=== PATIENT | female | born 1995 | race Caucasian/White ===

== ENCOUNTER 2019-05-08 07:59 | Emergency (ER) | payer SELFPAY ==
[~2019-05-08 07:59] MED LIST: Sodium Chloride 0.9% 1,000 ML BAG ONE; Sodium Chloride 0.9% 100 ML BAG ONE
[2019-05-08] MEDS ORDERED: Ondansetron PF 4 MG/2 ML Vial ONE ×2 (08:14→08:45)
[2019-05-08] MEDS ORDERED: Sodium Chloride 0.9% 1,000 ML ONE ×2 (08:15→12:53)
[2019-05-08] MEDS ORDERED: Morphine 4 MG/ML VIAL ONE ×2 (08:45→12:43)
[2019-05-08] MEDS ORDERED: Pantoprazole 40 MG VIAL ONE (08:45)
[2019-05-08] MEDS ORDERED: Lidocaine Viscous Sol 2% 15 ml UD Cup ONE ×2 (08:45→10:42)
[2019-05-08] MEDS ORDERED: Mag-Al Plus 1200 MG/1200 MG/120 MG/30 ML UDCUP ONE ×2 (08:45→10:42)
[2019-05-08 08:58] LABS: BHCG - Serum Negative (NEGATIVE); Pregs Control Bar Appear? YES (CONTROL BAR)
[2019-05-08 08:59] LABS: Pregs Control Background? CLEAR/WHITE (CLR/WHITE)
[2019-05-08 09:04] LABS: ALT (SGPT) 10 U/L (8-55); AST (SGOT) 12 U/L (5-34); Albumin 4.1 g/dL (3.5-5.0); Alkaline Phosphatase 67 U/L (40-110); Anion Gap 16 mmol/L (10-20); BUN (Urea Nitrogen) 7 mg/dL (7.0-18.7); Bilirubin, Total 1.6 mg/dL (0.2-1.2); Calc. Creatinine Clearance 0 mL/min (70-130); Calcium 9.3 mg/dL (7.8-10.44); Carbon Dioxide 17 mmol/L (22-29); Chloride 109 mmol/L (98-107); Estimated GFR-MDRD 83; Globulin 2.7 g/dL (2.4-3.5); Potassium 3.3 mmol/L (3.5-5.1); Protein, Total 6.8 g/dL (6.0-8.3); Sodium 139 mmol/L (136-145)
[2019-05-08 09:05] LABS: Glucose 166 mg/dL (70-105)
[2019-05-08 09:06] LABS: Mean Corpuscular HGB CONC 34.6 g/dL (32.0-36.0); Mean Corpuscular Volume 92.5 fL (78.0-98.0); Mean Platelet Volume 8.3 fL (7.4-10.4); Platelet Count 123 thou/uL (130-400); RBC Distribution Width 10.3 % (11.5-14.5); Red Blood Cell (RBC) Count 4.06 mill/uL (4.20-5.40); White Blood Cell (WBC) Count 14.5 thou/uL (4.8-10.8)
[2019-05-08 09:12] LABS: Lipase Less than 4 U/L (8-78)
[2019-05-08 09:15] LABS: Anisocytosis SLIGHT = 6-15 cells (100X) (0-5/hpf); Band 10 % (5-11); Lymphocytes 10 % (21-51); MDiff Complete? YES; Monocytes 6 % (0-10); Neutrophil 74 % (42-75); Platelet Morphology Comment Appears Adequate
[2019-05-08] MEDS ORDERED: cefTRIAXone\\ROCEPHIN 1 GM VIAL ONE (09:32)
--- NOTE | 2019-05-08 09:51 | CT ---
CT ABDOMEN AND PELVIS WITHOUT CONTRAST: INDICATIONS: Left flank pain. Nausea and vomiting. FINDINGS: The lung bases are clear. The liver, spleen and pancreas are unremarkable. Review of the urinary tract reveals no significant hydronephrosis. There is mild fullness of the left ureter. There is evidence of a tiny, 3 mm calculus in the distal left ureter. This is producing low grade obstruction. There is a 2 mm nonobstructing calculus in the lower pole collecting structures of the left kidney. T here is a 2 to 3 mm nonobstructing calculus in the upper pole collecting structures of the right kidn ey and a 2 mm calculus in the lower pole collecting structures of the right kidney. Bowel loops are unremarkable. Appendix is not identified. There is an IUD in the endometrial cavity. IMPRESSION: 1. There is evidence of a 3 mm calculus in the distal left ureter producing low grade obstruction. 2. There are tiny, nonobstructing calculi in the upper collecting structures of both kidneys, as desc ribed. POS: [facility]
[2019-05-08] MEDS ORDERED: Metoclopramide HCl 10 MG/2 ML VIAL ONE (09:53)
[2019-05-08 09:54] LABS: Bilirubin Negative (Negative); Blood, Urine Moderate (Negative); Clarity Clear (Clear); Glucose, Urine (Dipstick) 100 mg/dL (Negative); Leukocyte Negative (Negative); Nitrite Negative (Negative); Protein, Urine (Dipstick) Negative (Neg-Trace)
[2019-05-08 09:58] LABS: Bacteria/HPF None Seen HPF (None Seen); Squamous Epithelial 0-3 HPF (0-3); WBC/HPF 0-3 HPF (0-3)
[2019-05-08] MEDS ORDERED: Ketorolac Tromethamine 30 MG/ML VIAL ONE (13:41)
== END 2019-05-08 15:08 | disposition home or self-care (01) ==
LOC: MADERS 07:59
DX: N20.0 Calculus of kidney (principal); E87.6 Hypokalemia; D72.829 Elevated white blood cell count, unspecified; R11.2 Nausea with vomiting, unspecified
CPT/HCPCS: 51701; 74176; 80053; 81003; 81015; 83605; 83690; 84703; 85025; 87040; 87086; 96361; 96365; 96367; 96375; 96376; A4353; C9113; J0696; J1885; J2270; J2405; J2765; J3490; J7050